=== PATIENT | male | born 1985 | race Two or more races ===

== ENCOUNTER → 2022-04-07 | Emergency (ER) | payer OTHER ==
[~2022-04-07] VITALS: Ht 177.8 cm; Wt 74.8 kg
[~2022-04-07] MED LIST: ACID CONTROLLER20 MG PO; PRILOSEC OTC20 MG PO
== END | disposition home or self-care (01) ==
LOC: ER 14:02
DX: B34.9 Viral infection, unspecified (principal); Z20.822 Contact with and (suspected) exposure to COVID-19; Z88.2 Allergy status to sulfonamides